=== PATIENT | female | born 1975 | race Caucasian/White ===

== ENCOUNTER 2017-12-19 09:02 | Day surgery (SDC) | payer MEDICARE, MEDICAID, SELFPAY ==
--- NOTE | 2017-12-19 | IMM_PTH ---
PATIENT: AUBREY MORALES LOC: EN U#:[id number] AGE/SX: 42/F ROOM: RE12/19/[address]: Dr. Rusty Dill MD : 1975 BED: DIS: 12/19/2017 SPEC #: [id number] RECD: 12/22/17 12:44 STATUS: MARGY REManoj #: [id number] JEANNINE: 12/19/17 00:[address]: Rusty Dill DEPT: IMMUNOHISTOCHEMISTRY RECD BY: Sherrie Hewitt ENTERED: 12/22/17 12:46 SP TYPE: IMMUNO OTHR DR: Sincere Lopez Tissues: B - Stomach, NOS Procedures: H Pylori (initial) PHYSICIAN & INSTITUTION [place] [id number] SPECIMEN INFORMATION: Tissue Source: B ? Antral biopsy Clinical Info: Epigastric pain Specimen Number: [id number] CPT code: 79015 METHODOLOGY: Deparaffinized sections of prefer/formalin-fixed tissue or PAP/DQ stained slides are incubated with monoclonal/polyclonal antibodies/oligonucleotide probes. Localization is made via biotin free immunoperoxidase method. Appropriate controls are performed and reacted as expected. Results on target cell population are indicated in the following table: RESULTS: ANTIBODY / CLONE RESULT Block B H Pylori (polyclonal) negative These tests were developed and their performance characteristics determined by [facility]. They may not have been cleared or approved by the U.S. Food and Drug Administration. The FDA has determined that such clearance or approval is not necessary. INTERPRETATION: B. Antral biopsy: Negative for Helicobacter pylori organisms. COLUMBA:eder 12/23/17
[2017-12-19 09:28] VITALS: BP 118/81; PULSE 79; RESP 16; TEMP 36.6; O2SAT 100; BMI 23.8
--- NOTE | 2017-12-19 10:45 | EGD_PTH ---
PATIENT: AUBREY MORALES LOC: EN U#:[id number] AGE/SX: 42/F ROOM: RE12/19/[address]: Dr. Rusty Dill MD : 1975 BED: DIS: 12/19/2017 SPEC #: [id number] RECD: 12/19/17 11:06 STATUS: MARGY SANIA #: [id number] JEANNINE: 12/19/17 10:[address]: Rusty Dill DEPT: SURGICAL PATHOLOGY RECD BY: Sincere Brooks ENTERED: 12/19/17 11:58 SP TYPE: EGD BIOPSY OTHR DR: Sincere Lopez Tissues: A - Duodenum, NOS B - Gastric mucous membrane C - Esophageal mucous membrane Procedures: Special Stain Group II Special Stain Group I Surgery Specimen Level IV GMS Stain (control) Alcian Blue/PAS (control) HEADER OPERATION: EGD PRE-OP DIAGNOSIS: Epigastric pain TISSUE SUBMITTED: A ? Duodenal biopsy, B ? Antral biopsy for H. pylori and path, C ? Distal esophageal biopsy MICROSCOPIC DIAGNOSIS A. Duodenal biopsy: Fragment of duodenal mucosa, no pathologic diagnosis. B. Antral biopsy: Mild gastritis. See microscopic description and comment. C. Distal esophageal biopsy: Fragments of gastroesophageal mucosa with focal ulceration, acute and chronic inflammation and reactive epithelial changes. Intestinal metaplasia (goblet cell metaplasia) is not identified. Special stain for fungi is negative for organisms; matched control is appropriate. SJ:eder 12/22/17 COMMENT B. The results of immunohistochemistry for Helicobacter pylori will be reported separately ([id number]). C. Alcian blue/PAS stain with matched control is used in the evaluation of the specimen. MICROSCOPIC DESCRIPTION Slides are reviewed. B. The specimen shows fragments of gastric mucosa with chronic inflammatory cell infiltrates in the lamina propria consisting of lymphocytes and plasma cells, consistent with mild chronic gastritis. GROSS DESCRIPTION A - Received in fixative is one container labeled with the patient's name and designated duodenal biopsy. The specimen consists of one irregular fragment of light falcon soft tissue that measures 0.4 x 0.2 x 0.1 cm. The specimen is totally submitted in one cassette. B - Received in fixative is one container labeled with the patient's name and designated antral biopsy. The specimen consists of one irregular fragment of light falcon soft tissue that measures 0.6 x 0.2 x 0.1 cm. The specimen is totally submitted in one cassette. C - Received in fixative is one container labeled with the patient's name and designated distal esophageal biopsy. The specimen consists of multiple irregular fragments of light falcon soft tissue that in aggregate measure 1.3 x 0.2 x 0.1 cm. The specimen is totally submitted in one cassette. / SJ:rg 12/19/17 TC:2 CPT: 87541 x3, 01074, 78352
--- NOTE | 2017-12-19 10:53 | PCM.OPRPT ---
Problem List (1) Abdominal pain Status: Acute Qualifiers: Abdominal location: epigastric Qualified Code(s): R10.13 - Epigastric pain Report of Operation Date of Procedure: 12/19/17 Pre-Operative Diagnosis: Epigastric pain, intractable belching Post-Operative Diagnosis: Reflux esophagitis, hiatal hernia, mild antral gastritis, suspected mild duodenitis Surgery/Procedure Performed:: Esophagogastroduodenoscopy with duodenal and antral and distal esophageal biopsies Description of Surgical Findings:: .Informed consent was obtained. 42-year-old female was taken to the endoscopy suite. Her oropharynx anesthetized with Cetacaine she had monitored anesthesia care. She was placed in left lateral decubitus position. Flexible gastroscope was inserted into the esophageal inlet. Proximal mid esophagus not remarkable. The EG junction was at 35 cm. A 4 cm hiatal hernia noted. Diffuse diarrhea of reflux esophagitis for at least 4-5 cm were noted. Scope was advanced in the stomach and a mild antral erythema noted. Scope was advanced through the pylorus. The first and second portion the duodenum were inspected this was not remarkable. The scope was withdrawn back at into the duodenal bulb biopsies were obtained. Then the scope was withdrawn back to the antrum with a mild erythema was noted and biopsies were obtained. The scope was retroflexed. Moderate hiatal hernia noted. The he was under otherwise unremarkable. Excess fluid and air was aspirated free. The scope was withdrawn and distal esophageal biopsies were obtained. Excess fluid and air was aspirated free the procedure was completed with the patient tolerating it well. Impression Hiatal hernia with distal reflux esophagitis. The reflux esophagitis is consistent with the patient's abdominal pain. Antral and distal esophageal biopsies as well as duodenal biopsies are pending. We will initiate the patient on omeprazole therapy 40 mg daily while awaiting results. I have concerns regarding the amount of belching that the patient does that this may still have a psychosomatic component. The self-induced air swallowing and belching therefore aggravating the reflux. At this point I am not anticipating further evaluation or investigation for reflux or reflux surgery as I feel that she likely if repaired would end up with severe intractable gastric bloat syndrome. The patient will be notified of pathology as they become available. Cc: Uvaldo Dill M.D., F.A.C.S. Type of Anesthesia:: MAC
[2017-12-19 11:00] VITALS: BP 118/81; BP 127/95; PULSE 88; RESP 16; TEMP 36.4; O2SAT 100
[2017-12-19 11:05] VITALS: BP 118/81; BP 125/89; PULSE 87; RESP 16; O2SAT 100
[2017-12-19 11:10] VITALS: BP 118/81; BP 120/96; PULSE 73; RESP 16; O2SAT 100
[2017-12-19 11:17] VITALS: BP 118/81; BP 119/90; PULSE 85; RESP 16; TEMP 36.3; O2SAT 100
[2017-12-19] MEDS: Pantoprazole Sodium 40 MG Tablet PO (11:36)
[2017-12-19 11:53] VITALS: BP 118/81
== END 2017-12-19 11:55 | disposition home or self-care (01) ==
LOC: EN 09:03 → AC 09:35
PROVIDERS: Family Provider Nurse Practitioner Family; PCP Nurse Practitioner Family; Visit Provider Surgery
PROC: 0DJ08ZZ Inspection of Upper Intestinal Tract, Via Natural or Artificial Opening Endoscopic (ICD-10-PCS; CPT 43235; principal; 2017-12-19 10:10)
DX: K21.0 Gastro-esophageal reflux disease with esophagitis (principal); R10.13 Epigastric pain; K44.9 Diaphragmatic hernia without obstruction or gangrene; K29.50 Unspecified chronic gastritis without bleeding; E03.9 Hypothyroidism, unspecified; F32.9 Major depressive disorder, single episode, unspecified; G47.30 Sleep apnea, unspecified; F41.9 Anxiety disorder, unspecified; F17.200 Nicotine dependence, unspecified, uncomplicated; Z91.19 Patient's noncompliance with other medical treatment and regimen
CPT/HCPCS: 43239; 88305; 88312; 88313; 88342; J7120

== ENCOUNTER → 2017-12-24 12:17 | Outpatient (CLI) | payer MEDICARE, MEDICAID, SELFPAY ==
--- NOTE | 2017-12-24 12:19 | MRI_ITS ---
STUDY: MR CHOLANGIOPANCREATOGRAPHY (MRCP) REASON FOR EXAM: Female, 42 years old. abd pain, patient c/o belching TECHNIQUE: Standard MRCP technique was utilized. COMPARISON: None. FINDINGS: Heterogeneous right adrenal mass measuring 38 x 24 mm. This has central areas of increased T2 signal. Gall Bladder: Normal with no distention or demonstrated fixed intraluminal filling defect. Cystic duct: Normal with no demonstrated fixed filling defect. Intrahepatic ducts: Normal visualized intrahepatic ducts with no demonstrated fixed filling defect, dilation or stricture. Common hepatic duct: Normal with no demonstrated fixed filling defect, dilation or stricture. Common bile duct: Normal with no demonstrated fixed filling defect, dilation or stricture. Pancreatic duct: Normal with no demonstrated fixed filling defect, dilation or stricture. MRI/MRCP Abdomen without Contrast IMPRESSION: Normal gallbladder. Right adrenal mass. This is incompletely visualized on MRCP. Dedicated MRI with adrenal gland protocol is recommended for evaluation. Electronically Signed: Trino Luna MD at 16:17 EST , Service support ,
== END ==
PROVIDERS: Family Provider Nurse Practitioner Family; PCP Nurse Practitioner Family; Visit Provider Surgery
DX: E27.9 Disorder of adrenal gland, unspecified (principal); R10.9 Unspecified abdominal pain
CPT/HCPCS: 74181

== ENCOUNTER → 2020-11-14 12:11 | Outpatient (CLI) | payer MEDICARE, MEDICAID, SELFPAY ==
[2020-11-14 10:22] VITALS: BMI 28.9
[2020-11-17 20:16] LABS: HPV APTIMA, High Risk Negative (Negative)
== END ==
PROVIDERS: Visit Provider Nurse Practitioner Women's Health
DX: Z12.4 Encounter for screening for malignant neoplasm of cervix (principal)
CPT/HCPCS: 87624; 88175; G0145

== ENCOUNTER → 2020-11-24 13:25 | Outpatient (CLI) | payer MEDICARE, MEDICAID, SELFPAY ==
[2020-11-14 10:22] VITALS: BMI 28.9
--- NOTE | 2020-11-24 13:27 | US_ITS ---
STUDY: ULTRASOUND OF THE FEMALE PELVIS - COMPLETE REASON FOR EXAM: Female, 45 years old. Bloating LMP: 6 months ago. TECHNIQUE: Transabdominal and Transvaginal TECHNICAL QUALITY: Adequate. COMPARISON: None. FINDINGS: The uterus is anteverted and is in a midline position. The uterus measures 6.7 cm x 5.7 cm x 2.9 cm. Normal uterine cervix. The endometrium measures 2.0 mm in thickness, and is fluid distended. There is no demonstrated endometrial mass. There is a 1.5 cm x 1.1 cm x 1.2 cm fundal fibroid. Heterogeneous appearance of the myometrium. I.U.D. - The patient does not have an I.U.D. The right ovary is visualized. The right ovary measures 2 cm x 1.7 cm x 1.3 cm. There is no right ovarian cyst or ovarian mass. There is no visualized right adnexal mass or complex lesion. There is normal arterial and normal venous vascularity. The left ovary is visualized. The left ovary measures 2.9 cm x 2.5 cm x 1.7 cm. There is no left ovarian cyst or ovarian mass. There is no visualized left adnexal mass or complex lesion. There is normal arterial and normal venous vascularity. There is no fluid in the cul-de-sac. The pre void volume of the bladder was 350 ml. Polycystic ovary disease: No. US/Pelvic (Non ) IMPRESSION: Small fibroid in the fundal portion of uterus. Electronically Signed: Ronni Dangelo MD at 15:48 EST , Service support ,
--- NOTE | 2020-11-24 13:27 | US_ITS ---
STUDY: ULTRASOUND OF THE FEMALE PELVIS - COMPLETE REASON FOR EXAM: Female, 45 years old. Bloating LMP: 6 months ago. TECHNIQUE: Transabdominal and Transvaginal TECHNICAL QUALITY: Adequate. COMPARISON: None. FINDINGS: The uterus is anteverted and is in a midline position. The uterus measures 6.7 cm x 5.7 cm x 2.9 cm. Normal uterine cervix. The endometrium measures 2.0 mm in thickness, and is fluid distended. There is no demonstrated endometrial mass. There is a 1.5 cm x 1.1 cm x 1.2 cm fundal fibroid. Heterogeneous appearance of the myometrium. I.U.D. - The patient does not have an I.U.D. The right ovary is visualized. The right ovary measures 2 cm x 1.7 cm x 1.3 cm. There is no right ovarian cyst or ovarian mass. There is no visualized right adnexal mass or complex lesion. There is normal arterial and normal venous vascularity. The left ovary is visualized. The left ovary measures 2.9 cm x 2.5 cm x 1.7 cm. There is no left ovarian cyst or ovarian mass. There is no visualized left adnexal mass or complex lesion. There is normal arterial and normal venous vascularity. There is no fluid in the cul-de-sac. The pre void volume of the bladder was 350 ml. Polycystic ovary disease: No. US/Transvaginal Non- IMPRESSION: Small fibroid in the fundal portion of uterus. Electronically Signed: Ronni Dangelo MD at 15:48 EST , Service support ,
--- NOTE | 2020-11-24 14:15 | BI_ITS ---
MAMMOGRAPHY - BILATERAL SCREENING REASON FOR EXAM: Female, 45 years old. Routine annual screening examination. PERTINENT HISTORY: Sister with breast cancer. TECHNIQUE: Digital bilateral breast grazyna (3D mammographic acquisition) in the CC and MLO projections. 2-D mediolateral oblique (MLO) and craniocaudad (CC) views of both breasts were obtained. CAD: Full Field Digital Mammography with Computer Added Detection was performed. COMPARISON: No comparison mammograms available at this time. If any prior films become available, an addendum to this report can be generated. FINDINGS: Breast Composition: There are scattered areas of fibroglandular density. There are no dominant masses or suspicious calcifications. No other significant abnormalities are identified. BI/SCRN MAMM (CAD)W/GRAZYNA BILAT IMPRESSION: Negative screening mammogram. Yearly followup mammogram recommended. (A) ASSESSMENT CATEGORY: BIRADS Category 1: Negative. A letter regarding these results will be sent to the patient by the facility within 30 days. Approximately 10% of breast cancers are not detected by mammography. A normal mammogram should not delay biopsy of a clinically suspicious abnormality. [id number] Electronically Signed: Ronni Dangelo MD at 15:27 EST , Service support ,
[2020-11-24 15:50] LABS: Follicle Stimulating Hormone 97.4 mIU/mL; Thyroid Stim Hormone (TSH) 1.52 uIU/mL (0.358-3.74)
== END ==
PROVIDERS: PCP Nurse Practitioner Family; Referring Provider Nurse Practitioner Women's Health; Visit Provider Nurse Practitioner Women's Health
DX: N92.6 Irregular menstruation, unspecified (principal); R14.0 Abdominal distension (gaseous); D64.9 Anemia, unspecified; Z13.29 Encounter for screening for other suspected endocrine disorder; Z12.31 Encounter for screening mammogram for malignant neoplasm of breast
CPT/HCPCS: 36415; 76830; 76856; 77063; 77067; 83001; 84443

== ENCOUNTER → 2021-08-07 13:05 | Outpatient (CLI) | payer MEDICARE, MEDICAID, SELFPAY ==
--- NOTE | 2021-08-07 13:10 | SP.MBSS_ITS ---
Modified Barium Swallow - Patient Information Study Date: 08/07/21 Study Time: 13:00 Direct Billable Minutes: 135 Total Minutes procedure & reportin Diagnosis: dysphagia Referring Physician: Sincere Lopez NP Reason for Referral: Objective assessment of swallow function under fluoroscopy recommended following outpatient clinical evaluation of swallow function 07/10/21 to further elucidate diet texture/liquid consistency/compensatory strategy recommendations and improve specificity of dysphagia interventions selected. Patient reports sensation of esophageal retention/reflux w/ frequent burping and feeling SOB w/ intake. Medical History: epigastric pain, nausea & vomiting, sleep apnea, SOB, anxiety, depression, PTSD, arthritis, gastric reflux, hypothyroidism, hx of Esophagogastroduodenoscopy with duodenal and antral and distal esophageal biopsies in 2018 which revealed a hiatal hernia with distal reflux esophagitis Surgical History: tonsillectomy, x 2 Dentition: Edentulous Mental Status: WNL - sufficient to follow commands for participation in MBS Respiratory Status: Oxygenating on Room Air - Penetration-Aspiration Scale Penetration-Aspiration Scale: OBJECTIVE ASSESSMENT OF SWALLOW FUNCTION (QUANTITATIVE ? PER TRIAL): PENETRATION / ASPIRATION SCALE (SAUCEDA): 1 = does not enter airway 2 = enters airway/above vocal folds/ejected 3 = enters airway/above vocal folds/not ejected 4 = enters airway/contacts vocal folds/ejected 5 = enters airway/contacts vocal folds/not ejected 6 = enters airway/below vocal folds/ejected 7 = enters airway/below vocal folds/not ejected despite effort 8 = enters airway/below vocal folds/no effort - Penetration-Aspiration Scale Score Thin Liquid via teaspoon Result: 1= does not enter airway Thin Liquid via teaspoon Trial 2 Result: 1= does not enter airway Thin Liquid via small single sip from cup Result: 1= does not enter airway Thin Liquid via sequential sips from cup Result: 1= does not enter airway Thin Liquid via single sip from straw Result: 1= does not enter airway Abbott Thick Liquid via small single sip from cup Result: 1= does not enter airway Pudding via teaspoon Result: 1= does not enter airway Pudding via teaspoon - esophageal clearance screening Result: 1= does not enter airway Thin Liquid via small single sip from cup Trial 2 Result: 1= does not enter airway - Oral Phase Labial Seal: No Labial Escape Tongue Control During Bolus Hold: Escape to lateral buccal cavity/floor of mouth Bolus Transport/Lingual Motion: Repetitive/disorganized tongue motion Oral Residue: Residue collection on oral structures - Pharyngeal Phase Initiation of Pharyngeal Swallow: Bolus head in pyriforms Soft Palate Elevation: No bolus between soft palate and pharyngeal wall Laryngeal Elevation: Comp. Superior move thyroid cart w/comp. apprx arytenoid cart-epig pet Anterior Hyoid Excursion: Complete anterior movement Epiglottic Movement: Complete inversion Laryngeal Vestibule Closure at Height of Swallow: Complete; no air/contrast in laryngeal vestibule Pharyngeal Stripping Wave: Present - complete Pharyngoesophageal Segment Opening: Complete distension and complete duration; no obstruction of flow Tongue Base Retraction: Trace column of contrast between tongue base & post. pharyngeal wall Pharyngeal Residue: Complete pharyngeal clearance - Esophageal Phase Esophageal Clearance: Esophageal retention - Diagnosis/Impression Diagnosis: mild oral phase dysphagia; functional pharyngeal phase swallow function Impression: The oral phase is characterized by: * suboptimal lingual control w/ forward tongue placement * disorganized bolus preparation w/ pudding consistency w/ repetitive/disorganized lingual movement * piecemeal deglutition pattern utilized w/ pudding * minimal oral residue retention post-deglutition, cleared w/ second swallow independently * regular textures not trialed edentulous status The pharyngeal phase is characterized by: * suboptimal bolus location upon swallow onset w/ liquid reaching the pyriforms prior to swallow onset/laryngeal vestibule closure, although sufficient airway closure was achieved w/out penetration/aspiration across all trials (single, sequential, via straw) * complete pharyngeal clearance The esophageal phase is characterized by: * esophageal retention of contrast visible during screening to assess clearance * consistent post-prandial belching/eructation following all PO trials w/ aerophagia suspected * retrograde bolus flow through PES into pyriforms noted 1x d/t belching Diet Recommended: Puree (IDDSI:4) / Thin Liquid (IDDSI 0) Compensatory Strategies Recommended: small bites/sips, slow rate of intake, seated upright for PO intake, remain upright for 30 minutes after intake (GERD precaution) Need for Repeat MBS: No Additional Speech Therapy Services Recommended: This patient required continued dysphagia intervention targeting oral phase dysphagia and orofacial myology disorder. Education: Extended time spent w/ this patient following MBS conclusion reviewing images and discussing implications of findings. Reviewed images from MBS, showing complete airway protection w/out penetration/aspiration and complete pharyngeal bolus clearance. Education provided re: normal esophageal transit time. Post-prandial burping resulted in retrograde bolus flow from the esophagus through the PES into the pyriforms. The patient reports that burps after swallowing because she feels as if she can't breathe. Reviewed images w/ the patient and reassured her that her airway was clear. Discussed the correlation between anxiety and swallow function - highly suspect a psychosomatic component to frequent belching - this patient would benefit from a referral for counseling/cognitive-behavioral therapy to address the underlying etiology of aerophagia/post-prandial belching pattern, and potentially gagging w/ denture use as these all appear to be anxiety producing for this patient. Encouraged patient to follow up w/ outpatient speech therapy to address oral bolus transportation and lingual placement for potential denture use. Education and support were well received w/the patient voicing understanding and agreement w/ the recommendations provided. - Status Active ST Patient: Active - Contact Information [facility] Speech Therapy:: Stefany Livingston M.A., CCC-GEOTHERMAL OPERATING ENGINEER [facility] [address] [place] [address] x [phone] [email or web address]
== END ==
PROVIDERS: PCP Nurse Practitioner Family; Referring Provider Nurse Practitioner Family; Visit Provider Nurse Practitioner Family
DX: R13.10 Dysphagia, unspecified (principal)
CPT/HCPCS: 74230; 92611

== ENCOUNTER 2021-09-03 11:30 | Outpatient (RCR) | payer MEDICARE, MEDICAID, SELFPAY ==
--- NOTE | 2021-07-10 15:20 | HP.SP.AD_ITS ---
History - History Date of Eval: 07/10/21 Medical Diagnosis (from RX): Dysphagia/ Orofacial myology disorder Date of Onset of Diagnosis: 2017 Previous speech therapy: No Other Relevant Medical History/Diagnoses/Surgery: PTSD, GERD, tonsils and adenoids removed. Medications related to this diagnosis: Omeprazole Smoking Status: Current every day smoker Hx Smoking: Yes - 1 PPD X 4 YRS Hx Tobacco Use: Yes - Pain Is pain an issue with your current prescribed condition?: No - Personal Right Hearing Abillity: Normal Left Hearing Abillity: Normal Patients Living Arrangements: With Family Patient Allergies - Allergies Allergies No Known Allergies Allergy (Verified 11/14/20 10:16) Objective Oral Motor - Oral Status Additional: edentulous - Labial Impairment: WNL Observation at Rest: WNL Closure: WNL Pucker: WNL Involuntary Movement noted: No - Lingual Impairment: WNL Protrusion: WNL Retraction: WNL Lateralization: WNL Involuntary Movement: No - Lingual Comments Comments: Patient presented with a tongue thrust swallow. She stated that she had a gap between her front teeth and was told as a child that braces would not help until her tongue positioning was corrected. (suspected orofacial myology disorder that was not corrected) - Jaw Impairment: WNL Opening: WNL Closing: WNL Involuntary Movement: No - Oral Motor Comments Comments: Patient is able to wear lower dentures without difficulty. Upper plate makes patient gag if in longer than a few minutes and currently neither upper and lower are not worn. (Teeth removed in 2018 as patient stated she was no longer able to take care of her teeth with high level of bad teeth/ recurrent decay) - Respiratory Status Respiratory Status: Room Air Subjective Dysphagia - Symptoms Reported Symptoms/Problems with: Drooling, Difficulty Swallowing Solids, Difficulty Swallowing Liquids - Current Diet Solids Current Diet: Soft - Current Diet Liquids Current Liquids: Thin Objective Dysphagia - Administered by Administered by: Self - Thin Liquids Administred via: Cup Laryngeal Elevation: Impaired Oral Holding: No Gagging: No Patient Report: Patient reported that she felt that it went down on both sides of my throat. She also stated that she often feels too - Pureed Laryngeal Elevation: Impaired Oral Holding: No Gagging: No AP Movement: Patient had slow movement and noted tongue thrusting during the swallow. Patient Report: Patient reported that she had some left in her throat. Comments: Patient had audible swallow with burping after every bite. - Regular Patient Report: Patient reported unable to eat regular foods and most of her d iet is soft foods at home. Comments: Patient reported burping at every meal at home and it was noted during oral intake today. - Results Swallowing Within Normal Limits: No Swallowing Diagnosis: Dysphagia Unspecified Plan - Plan Plan: Speech therapy is warranted for Orofacial myology disorder as well as oral dysphagia and possibly pharyngeal dysphagia pending MBS results. The patient has an abnormal swallow pattern which is effecting her oral intake. - Recommendations MBS: Yes Treatment Warranted: Yes - Frequency Frequency: 1x/Week Duration: 2 Months Visits in this POC: 8 - Prognosis Prognosis: Good - Goals that are Established: Determination:: Goals will be added/modified as deemed necessary and appropriate. Therapy will be discontinued when results of re-evaluation indicate therapy is no longer needed or lack of progress has been documented. - Goal #1-5 Goal #1: Evaluate further for Orofacial Myology disorder. Goal #2: MBS with goal adjustment as needed. Goal #3: The Patient will demonstrate and utilize recommended oropharyngeal strengthening exercises to facilitate improved velopharyngeal and oropharyngeal strength and coordination with minimal cueing and prompting provide by the clinician, across 3 to 3 sessions. Education - Patient has Indicated that the Following Identified Educational Needs: None The Patient has indicated that they have no educational or learning abilities that may effect their care.: Yes - Patient Instruction Patient Education: Diagnosis, Treatment Plan, Goals Person Taught: Patient Teaching Method: Discussion Response to teaching: Return demonstration
--- NOTE | 2022-01-16 11:37 | HP.SP.DC ---
ST Discharge Summary - Discharged: Discharge: Elisa Real is discharged from [facility] Speech therapy as of 01/16/22. She was initially evaluated on 07/10/21 with therapy recommended weekly for Dysphagia/ Orofacial myology disorder. She had an MBSS on 08/07/21 with the recommendation of Puree (IDDSI:4) / Thin Liquid (IDDSI 0) due to inability to wear dentures. Patient gagged for 10-30 seconds with dentures in place. She attended three sessions following her evaluation. Patient reported feeling air and pressure in her head and mouth while swallowing. She also stated that she feels like she needs to bring the air down. Therapist explained anatomy of breathing and oral structures. Explained her gagging as well as desensitizing the gag reflex. Encouraged patient to talk with a counselor or friend. She stated she has no friends and has a difficult time leaving the house. Patient declined to continue therapy after 3 visits. Thank you for allowing me to participate in the care of this patient.
== END 2021-09-03 19:00 | disposition home or self-care (01) ==
LOC: SP 11:30
PROVIDERS: PCP Nurse Practitioner Family; Referring Provider Nurse Practitioner Family; Visit Provider Nurse Practitioner Family
DX: K14.9 Disease of tongue, unspecified (principal)
CPT/HCPCS: 92610

== ENCOUNTER → 2022-08-27 | Outpatient (CLI) | payer MEDICARE, MEDICAID, SELFPAY ==
--- NOTE | 2022-08-27 09:24 | BI_ITS ---
MAMMOGRAPHY - BILATERAL SCREENING REASON FOR EXAM: Female, 46 years old. Routine annual screening examination. PERTINENT HISTORY: Sister with breast cancer. TECHNIQUE: Digital bilateral breast grazyna (3D mammographic acquisition) in the CC and MLO projections. 2-D mediolateral oblique (MLO) and craniocaudad (CC) views of both breasts were obtained. CAD: Full Field Digital Mammography with Computer Added Detection was performed. COMPARISON: Comparison is made with prior study dated 11/24/2020. FINDINGS: Breast Composition: There are scattered areas of fibroglandular density. There are no dominant masses or suspicious calcifications. No other significant abnormalities are identified. There has been no significant change since the prior study. BI/SCRN MAMM (CAD)W/GRAZYNA BILAT IMPRESSION: Stable bilateral screening mammogram. Yearly follow-up mammogram recommended. (A) ASSESSMENT CATEGORY: BIRADS Category 1: Negative. A letter regarding these results will be sent to the patient by the facility within 30 days. Approximately 10% of breast cancers are not detected by mammography. A normal mammogram should not delay biopsy of a clinically suspicious abnormality. [id number] Electronically Signed: Ronni Dangelo MD at 10:21 EDT ,
== END | disposition home or self-care (01) ==
LOC: OPBI 09:23
PROVIDERS: PCP Nurse Practitioner Family; Referring Provider Nurse Practitioner Women's Health; Visit Provider Nurse Practitioner Women's Health
DX: Z12.31 Encounter for screening mammogram for malignant neoplasm of breast (principal)
CPT/HCPCS: 77063; 77067

== ENCOUNTER → 2024-01-08 | Outpatient (CLI) | payer MEDICARE, MEDICAID, SELFPAY ==
--- NOTE | 2024-01-08 09:28 | BI_ITS ---
MAMMOGRAPHY - BILATERAL SCREENING REASON FOR EXAM: Female, 48 years old. Routine annual screening examination. PERTINENT HISTORY: Sister with breast cancer. TECHNIQUE: Digital bilateral breast grazyna (3D mammographic acquisition) in the CC and MLO projections. 2-D mediolateral oblique (MLO) and craniocaudad (CC) views of both breasts were obtained. CAD: Full Field Digital Mammography with Computer Added Detection was performed. COMPARISON: Comparison is made with prior study dated August 27, 2022 and November 24, 2020. FINDINGS: Breast Composition: There are scattered areas of fibroglandular density. There are no dominant masses or suspicious calcifications. No other significant abnormalities are identified. There has been no significant change since the prior study. BI/SCRN MAMM (CAD)W/GRAZYNA BILAT IMPRESSION: Stable bilateral screening mammogram. Yearly follow-up mammogram recommended. (A) ASSESSMENT CATEGORY: BIRADS Category 1: Negative. A letter regarding these results will be sent to the patient by the facility within 30 days. Approximately 10% of breast cancers are not detected by mammography. A normal mammogram should not delay biopsy of a clinically suspicious abnormality. [id number] Electronically Signed: Ronni Dangelo MD at 11:28 EDT ,
== END | disposition home or self-care (01) ==
LOC: OPBI 09:27
PROVIDERS: PCP Nurse Practitioner Family; Referring Provider Nurse Practitioner Family; Visit Provider Nurse Practitioner Family
DX: Z12.31 Encounter for screening mammogram for malignant neoplasm of breast (principal)
CPT/HCPCS: 77063; 77067

== ENCOUNTER → 2025-01-28 | Outpatient (CLI) | payer MEDICARE, MEDICAID, SELFPAY ==
--- NOTE | 2025-01-28 10:24 | BI_ITS ---
EXAM: SCRN MAMM (CAD)W/GRAZYNA BILAT 01/28/2025 CLINICAL HISTORY: F, Age 49 y/o , SCREENING TECHNIQUE: Bilateral screening digital breast tomosynthesis with 2D and 3D images. Computer aided detection. COMPARISON: Prior exam(s) dated 01/08/2024, 08/27/2022. FINDINGS: TISSUE DENSITY: The breast tissue is almost entirely fatty. Bilateral Breast Mammographic Findings: No significant masses, calcifications or other abnormalities are identified. BI/SCRN MAMM (CAD)W/GRAZYNA BILAT IMPRESSION: Right Breast: BIRADS 1 NEGATIVE. Left Breast: BIRADS 1 NEGATIVE. OVERALL FINAL ASSESSMENT: BIRADS 1 NEGATIVE. RECOMMENDATION: Routine annual follow-up in 1 Year A letter with findings and recommendations will be mailed to the patient. Reading Location: [facility]
== END | disposition home or self-care (01) ==
LOC: OPBI 10:20
PROVIDERS: PCP Nurse Practitioner Family; Referring Provider Nurse Practitioner Family; Visit Provider Nurse Practitioner Family
DX: Z12.31 Encounter for screening mammogram for malignant neoplasm of breast (principal)
CPT/HCPCS: 77063; 77067